=== PATIENT | male | born 1960 | race Caucasian/White ===

== ENCOUNTER → 2018-02-20 | Outpatient (CLI) | payer BC ==
[~2018-02-20] MED LIST: ASCO1TAB4 PO; CHOL200024 PO; CYAN1TAB29 PO; FEXO180T15 PO; FLUT9.9S NS; GLUC15006 PO; IBUP1TAB76 PO; MULT-516 PO; ROSU20TA PO; TRAZ150T62 PO
[2018-02-20 16:22] LABS: MICROSCOPIC NOT IND
[2018-02-20 16:24] LABS: BASOPHILS # (AUTO) 0.03 x10^3/uL (0-0.1); BASOPHILS % (AUTO) 0 % (0-1); EOSINOPHILS # (AUTO) 0.47 x10^3/uL (0-0.4); EOSINOPHILS % (AUTO) 6 % (1-7); LYMPHOCYTES # (AUTO) 1.61 x10^3/uL (1-3.4); LYMPHOCYTES % (AUTO) 22 % (22-44); MD NO; MEAN CORPUSCULAR HEMOGLOBIN 30.2 pg (27.5-34.5); MEAN CORPUSCULAR HGB CONC 33.8 g/dL (33.2-36.2); MEAN CORPUSCULAR VOLUME 89.2 fL (81-97); MEAN PLATELET VOLUME 7.4 fL (7.4-10.4); MONOCYTES # (AUTO) 0.59 x10^3/uL (0.2-0.8); MONOCYTES % (AUTO) 8 % (2-9); NEUTROPHILS # (AUTO) 4.66 x10^3/uL (1.8-6.8); NEUTROPHILS % (AUTO) 63 % (42-75); PLATELET COUNT 343 x10^3/uL (130-400); RED BLOOD COUNT 4.94 x10^6/uL (4.38-5.82); RED CELL DISTRIBUTION WIDTH 13.2 % (9.4-14.8)
[2018-02-20 16:30] LABS: CULTURE INDICATED? NO
[2018-02-20 16:33] LABS: ANION GAP 7 mmol/L (5-15); CHLORIDE 108 mmol/L (98-107); CREATININE 0.94 mg/dL (0.7-1.3)
== END ==
LOC: STAR 15:13
PROVIDERS: ATTEND Orthopaedic Surgery
DX: M17.12 Unilateral primary osteoarthritis, left knee (principal)
CPT/HCPCS: 36415; 80048; 81003; 85025; 87081; 87147; 93005

== ENCOUNTER 2018-02-25 06:27 | Inpatient (IN) | payer BC ==
[~2018-02-25] VITALS: Ht 180.3 cm; Wt 94.4 kg
[2018-02-25] MEDS ORDERED: LACTATED RINGERS 1,000 ML IV SCH (06:54)
[2018-02-25] MEDS ORDERED: MUPI22OI2 NAS (07:01)
[2018-02-25] MEDS ORDERED: LIDOCAINE-MPF 1%, 2ML INFIL ONE (07:30)
[2018-02-25] MEDS ORDERED: ONDANSETRON ODT 8 MG PO ONE (07:30)
[2018-02-25] MEDS ORDERED: ACETAMINOPHEN 500 MG TABLET PO ONE (07:30)
[2018-02-25] MEDS ORDERED: GABAPENTIN 300 MG CAPSULE PO ONE (07:30)
[2018-02-25] MEDS ORDERED: OxyconTIN ER 20 MG TAB.ER PO ONE (07:30)
[2018-02-25] MEDS ORDERED: KETOROLAC 60 MG/2 ML ONE (08:46)
[2018-02-25] MEDS ORDERED: TRANEXAMIC ACID 100 MG/ML, 10ML ONE (08:46)
[2018-02-25] MEDS ORDERED: ROPIvacaine/PF 0.2%, 20 ML ONE (08:46)
[2018-02-25] MEDS ORDERED: SODIUM CHLORIDE 0.9% 100 ML ONE (08:47)
[2018-02-25] MEDS ORDERED: VANCOMYCIN 1,000 MG ONE (08:47)
[2018-02-25] MEDS ORDERED: MIDAZOLAM 1 MG/ML, 2ML ONE (08:59)
[2018-02-25] MEDS ORDERED: FENTANYL PF 100 MCG/2ML ONE ×3 (09:00→11:38)
[2018-02-25] MEDS ORDERED: BUPIVACAINE 0.25% ONE (09:05)
[2018-02-25] MEDS ORDERED: OXYcodone 5 MG/5 ML ORAL.SOL UDC PO PRN (09:30)
[2018-02-25] MEDS ORDERED: LABETALOL 5MG/ML, 20ML IV PRN (09:30)
[2018-02-25] MEDS ORDERED: hydrALAzine 20 MG/ML, 1ML IV PRN (09:30)
[2018-02-25] MEDS ORDERED: PROMETHAZINE 25 MG/ML, 1ML IV PRN (09:30)
[2018-02-25] MEDS ORDERED: FENTANYL PF 100 MCG/2ML IV PRN (09:30)
[2018-02-25] MEDS ORDERED: LORazepam 2 MG/ML, 1ML IVPush PRN (09:30)
[2018-02-25] MEDS ORDERED: MEPERIDINE/PF 25MG/0.5ML IVPush PRN (09:30)
[2018-02-25] MEDS ORDERED: morphine SULFATE 10 MG/ML, 1ML IV PRN (09:30)
[2018-02-25] MEDS ORDERED: PROPOFOL 10 MG/ML, 20ML ONE (09:31)
[2018-02-25] MEDS ORDERED: LIDOCAINE-MPF 2% ,5ML ONE (09:31)
[2018-02-25] MEDS ORDERED: WATER-INJECTION,STERILE 10 ML IV ONE (09:31)
[2018-02-25] MEDS ORDERED: CEFAZOLIN 1,000 MG ONE ×2 (09:32)
[2018-02-25] MEDS ORDERED: ROCURONIUM 10MG/ML,5ML ONE (09:33)
[2018-02-25] MEDS ORDERED: DEXAMETHASONE 4 MG/ML, 1ML ONE ×2 (09:34)
[2018-02-25] MEDS ORDERED: KETAMINE 10 MG/ML, 20ML ONE (10:07)
[2018-02-25] MEDS ORDERED: EPINEPHRINE 1 MG/ML, 1ML ONE (10:35)
[2018-02-25] MEDS ORDERED: D5%-0.45% NACL 1,000 ML IV SCH (11:28)
[2018-02-25] MEDS ORDERED: MAGNESIUM HYDROXIDE 8%, 30ML UDC PO PRN (11:30)
[2018-02-25] MEDS ORDERED: DIPHENHYDRAMINE 25 MG CAPSULE PO PRN (11:30)
[2018-02-25] MEDS ORDERED: ONDANSETRON 4 MG TABLET PO PRN (11:30)
[2018-02-25] MEDS ORDERED: BISACODYL 10 MG SUPP PR PRN (11:30)
[2018-02-25] MEDS ORDERED: ALUMINUM/MAG/SIMETHICONE 30 ML UDC PO PRN (11:30)
[2018-02-25] MEDS ORDERED: SENNA/DOCUSATE TABLET PO PRN (11:30)
[2018-02-25] MEDS ORDERED: ZOLPIDEM 5MG TABLET PO PRN (11:30)
[2018-02-25] MEDS ORDERED: PROMETHAZINE 12.5 MG SUPP PR PRN (11:30)
[2018-02-25] MEDS ORDERED: ONDANSETRON 2MG/ML, 2ML IV PRN (11:30)
[2018-02-25] MEDS ORDERED: OXYcodone IR 5MG TABLET PO PRN (11:30)
[2018-02-25] MEDS ORDERED: HYDROmorphone 1 MG/ML, 1ML IV PRN (11:30)
[2018-02-25] MEDS: OXYcodone IR 5MG TABLET PO SCH ×2 (11:30→16:11)
[2018-02-25] MEDS ORDERED: PROMETHAZINE 25 MG/ML, 1ML IM PRN (11:30)
[2018-02-25] MEDS ORDERED: ACETAMINOPHEN 650 MG/20.3 ML UDC PO SCH (11:30)
[2018-02-25] MEDS ORDERED: DIAZEPAM 5 MG TABLET PO PRN (11:30)
[2018-02-25] MEDS ORDERED: OXYcodone 5 MG/5 ML ORAL.SOL UDC ONE (11:39)
[2018-02-25] MEDS ORDERED: MEPERIDINE/PF 50 MG/ML ONE (11:53)
[2018-02-25] MEDS ORDERED: TRANEXAMIC ACID 1,000 MG in SODIUM CHLORIDE 0.9% 100 ML IVPB ONE (12:00)
[2018-02-25] MEDS ORDERED: TAMSULOSIN 0.4 MG CAP.ER.24H PO SCH (12:00)
[2018-02-25 14:42] VITALS: BP 136/74
[2018-02-25 16:00] VITALS: BP 126/77
[2018-02-25] MEDS ORDERED: ASPI-621 PO (16:45)
[2018-02-25] MEDS ORDERED: ACET650S21 PO (16:45)
[2018-02-25] MEDS ORDERED: CEFAZOLIN 2,000 MG in DEXTROSE 5% 100 ML IVPB SCH (17:30)
[2018-02-25] MEDS ORDERED: ASPIRIN 81 MG TABLET EC PO SCH (18:00)
[2018-02-25] MEDS ORDERED: ATORVASTATIN 40 MG TABLET PO SCH (21:00)
[2018-02-25] MEDS ORDERED: DOCUSATE 100 MG CAPSULE PO SCH (21:00)
[2018-02-26] MEDS ORDERED: DEXAMETHASONE 4 MG/ML, 1ML IVPush SCH (06:00)
[2018-02-26] MEDS ORDERED: TRAZODONE 150MG TABLET PO SCH (09:00)
[2018-02-26] MEDS ORDERED: MULTIVITAMINS/MINERALS TABLET PO SCH (09:00)
[2018-02-26] MEDS ORDERED: KETOROLAC 30 MG/1 ML IV SCH (11:30)
== END 2018-02-25 17:20 | disposition home or self-care (01) | DRG 470 ==
LOC: OUT 06:27 → ORIP 11:28 → 4NOR 13:00
PROVIDERS: ADMIT Orthopaedic Surgery; ATTEND Orthopaedic Surgery
PROC: 0SRD069 Replacement of Left Knee Joint with Oxidized Zirconium on Polyethylene Synthetic Substitute, Cemented, Open Approach (ICD-10-PCS; principal; 2018-02-25 09:15)
DX: M17.12 Unilateral primary osteoarthritis, left knee (principal); E78.5 Hyperlipidemia, unspecified; Z87.891 Personal history of nicotine dependence
CPT/HCPCS: C1713; J0171; J0690; J1100; J1885; J2175; J2250; J2704; J2795; J3010; J3370; J3490; Q0162; C1776; J7120